=== PATIENT | male | born 1990 | race American Indian/Alaskan Native ===

== ENCOUNTER 2018-06-16 08:24 | Emergency (ER) | payer SELFPAY ==
[2018-06-16 08:39] VITALS: BP 135/82
--- NOTE | 2018-06-16 09:08 | Emergency Department Report ---
Chief Complaint: Urogenital-Male Stated Complaint: ABD PAIN/DISCHARGE Time Seen by Provider: 06/16/18 08:59 - HPI History of Present Illness: Patient is a 28-year-old [place] male who states he's had some penile discharge for the past 2 days. Patient states that his dysuria as well. Patient denies any fevers chills nausea vomiting diarrhea. Patient has had unprotected sex. Patient states he has come to the emergency department because he feels as though he'll be a quarter option to get treated then the health Department. Patient states health Department was not accepting any walk- ins. - ROS Review of Systems: All of the systems are reviewed and are negative - Exam Vital Signs: Vital Signs 06/16/18 08:36 Temperature 99.1 F Pulse Rate 100 H Respiratory 16 Rate Blood Pressure 135/82 O2 Sat by Pulse 99 Oximetry Physical Exam: Patient's abdomen is soft nontender lungs clear to auscultation and is in no acute distress MSE screening note: Focused history and physical exam performed. Due to findings the following was ordered: ED Medical Decision Making - Medical Decision Making She was medical emergency at this time. Patient was opted not to hospitals $ 150 co-pay. Patient also states he does not have his ID and cannot actually verify his identity. Patient referred to assess at [facility] or the health department at this time. ED Disposition for MSE Clinical Impression: Urethritis Disposition: MED SCREENING EXAM-LEFT Is pt being admited?: No Does the pt Need Aspirin: No Condition: Stable Referrals: PRIMARY CARE [Primary Care Provider] - 3-5 Days Forms: STI Treatment and Prevention Time of Disposition: :08
== END 2018-06-16 09:37 | disposition left against medical advice (07) ==
LOC: ED 08:24
DX: N34.2 Other urethritis (principal)
CPT/HCPCS: 99281